=== PATIENT | female | born 1980 | race Caucasian/White ===

== ENCOUNTER 2024-07-27 16:05 | Observation (INO) | payer MEDICARE, MEDICAID, SELFPAY ==
[2024-07-27] VITALS (27 sets, daily range): BP systolic 119–210; BP diastolic 84–131; PULSE 73–102; TEMP 36.8–37.1; O2SAT 84–100; BMI 25.5; BMI 24.1
--- NOTE | 2024-07-27 16:06 | ECG_ITS ---
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 Measurements Intervals [place] Rate: 91 P: 53 VT: 186 QRS: 70 QRSD: 106 T: 64 QT: 360 QTc: 409 Interpretive Statements 1100 Sinus rhythm 47308 with occasional ventricular premature complexes (Unreliable analysis due to noise) 0102 ARTIFACT PRESENT 9140 abnormal rhythm ECG Compared to ECG 12/02/2019 14:03:23 Ventricular premature complex(es) now present Electronically Signed On 07-27-2024 17:59:14 EDT by ROXY MARCUS M.D.
--- NOTE | 2024-07-27 16:10 | ED.GENADUL1 ---
HPI HPI - General Adult General Chief complaint: Chest Pain Stated complaint: CARDIAC Time Seen by Provider: 07/27/24 16:06 History of Present Illness HPI narrative: 43-year-old female presents to the emergency department for an unresponsive episode. The patient was transported here by paramedics. Initially the history is obtained from them and they reported that they were called to her car because she was having pain in her chest. The patient told me that she was on her way to another hospital because she was having this pain that started at noon when she woke from sleep. According to the paramedics she was unresponsive and at one point was bradycardic. They reported that she was in and out of consciousness and when they placed the left shoulder IO she did not respond to that painful stimulus at all. She denies using any drugs in her blood sugar was normal. The patient reports that she was at [facility] until 2 days ago and was there for few days because of cervical issues. She states she had an MRI and is going to see a neurosurgeon. The patient's main complaint now is pain at her left shoulder where the IO is. She also complained of some shortness of breath earlier. Related Data Home Medications ?Medication ?Instructions ?Recorded ?Confirmed baclofen 5 mg tablet 5 mg PO BID 07/27/24 07/27/24 cyanocobalamin (vitamin B-12) 1,000 mcg PO DAILY 07/27/24 07/27/24 1,000 mcg sublingual tablet cyclobenzaprine 10 mg tablet 10 mg PO TID 07/27/24 07/27/24 duloxetine 30 mg capsule,delayed 30 mg PO DAILY 07/27/24 07/27/24 release ergocalciferol (vitamin D2) 1,250 1,250 mcg PO .QWEEKLY 07/27/24 07/27/24 mcg (50,000 unit) capsule gabapentin 800 mg tablet 800 mg PO TID 07/27/24 07/27/24 glucagon 1 mg/0.2 mL subcutaneous 1 mg subcut DAILY PRN low blood 07/27/24 07/27/24 auto-injector (Gvoke HypoPen sugar 2-Pack) hydroxyzine HCl 25 mg tablet 25 mg PO DAILY 07/27/24 07/27/24 mirtazapine 15 mg tablet 15 mg PO .QHS 07/27/24 07/27/24 ondansetron 4 mg disintegrating 4 mg PO Q8H PRN nausea and vomiting 07/27/24 07/27/24 tablet oxcarbazepine 150 mg tablet 150 mg PO BID 07/27/24 07/27/24 pantoprazole 40 mg tablet,delayed 40 mg PO BID 07/27/24 07/27/24 release sumatriptan succinate 100 mg tablet 100 mg PO Q2H PRN migraine headache 07/27/24 07/27/24 topiramate 50 mg tablet 50 mg PO BID 07/27/24 07/27/24 Allergies Allergy/AdvReac Type Severity Reaction Status Date / Time sulfamethoxazole (From Allergy Mild Hives Verified 07/27/24 16:08 Bactrim) trimethoprim (From Bactrim) Allergy Mild Hives Verified 07/27/24 16:08 Opioid HPI Opioid Management Most Recent Opioid Data: Ur Phencyclidine Scrn, (NEGATIVE) Negative Today, 17:06 Review of Systems ROS Narrative A ten point review of systems is negative except as noted above. Exam Narrative Exam Narrative: Nurses note and vital signs reviewed and patient is not hypoxic. General: The patient is awake when she is brought into the emergency department. She is screaming out in pain and holding her left shoulder and left upper chest area. Skin: Warm, dry, no pallor noted. There is no rash noted. Head: Normocephalic, atraumatic Eye: Normal conjunctiva, no drainage Ears, Nose, Mouth, and Throat: oral mucosa is moist. Nares patent. Cardiovascular: Regular Rate and Rhythm Respiratory: Patient is in no distress, no accessory muscle use, lungs are clear to auscultation, no wheezing, rales or rhonchi. Breath sounds are equal Back: non-tender GI: Soft and nontender Musculoskeletal: The patient has no evidence of calf tenderness, no pitting edema, symmetrical pulses noted bilaterally. Left shoulder has IO. Neurological: Awake alert and fully oriented Psychiatric: Mildly uncooperative, tearful Constitutional Vital Signs, click to edit/add: Last Vital Signs Temp 98.3 F 07/27/24 16:05 Pulse 96 H 07/27/24 18:10 Resp 20 07/27/24 18:10 BP 146/99 H 07/27/24 18:10 Pulse Ox 97 07/27/24 18:10 O2 Del Method Room Air 07/27/24 18:10 Course Vital Signs Vital signs: Vital Signs Temperature 98.3 F 07/27/24 16:05 Pulse Rate 98 H 07/27/24 16:05 Respiratory Rate 22 H 07/27/24 16:05 Blood Pressure 148/102 H 07/27/24 16:05 Pulse Oximetry 100 07/27/24 16:05 Oxygen Delivery Method Room Air 07/27/24 16:05 Temperature 98.3 F 07/27/24 16:05 Pulse Rate 96 H 07/27/24 18:10 Respiratory Rate 20 07/27/24 18:10 Blood Pressure 146/99 H 07/27/24 18:10 Pulse Oximetry 97 07/27/24 18:10 Oxygen Delivery Method Room Air 07/27/24 18:10 Medical Decision Making MDM Narrative Medical decision making narrative: The patient is awake and alert still frequently screaming out in pain. Her cardiac workup thus far has been negative with repeat troponin pending. CAT scan of her brain is ordered as well because of this unusual behavior and altered mental status. The patient is signed out to Dr. Navarro at change of shift. Differential Diagnosis Differential Diagnosis: Pneumothorax, OR, pneumonia, chest wall pain, substance abuse Lab Data Lab results reviewed: Yes I reviewed the patient's lab results Labs: Lab Results 07/27/24 07/27/24 Range/Units 16:20 17:06 WBC 9.2 (4.0-11.0) 10^3/uL RBC 4.51 (4.20-5.40) 10^6/uL Hgb 14.2 (12.0-16.0) g/dL Hct 42.9 (36.0-48.0) % MCV 95.1 (81.0-99.0) fL MCH 31.5 (26.7-34.0) pg MCHC 33.1 (29.9-35.2) g/dL RDW 13.1 (11.0-15.0) % Plt Count 320 (150-450) 10^3/uL MPV 9.6 (9.5-13.5) fL Neut % (Auto) 72.9 (43.0-75.0) % Lymph % (Auto) 20.2 L (20.5-60.0) % [place] % (Auto) 5.0 (1.7-12.0) % Eos % (Auto) 0.7 L (0.9-7.0) % Baso % (Auto) 0.8 (0.2-2.0) % Neut # (Auto) 6.7 H (1.4-6.5) 10^3/uL Lymph # (Auto) 1.9 (1.2-3.8) 10^3/uL [place] # (Auto) 0.5 (0.3-0.8) 10^3/uL Eos # (Auto) 0.1 (0.0-0.7) 10^3/uL Baso # (Auto) 0.1 (0.0-0.1) 10^3/uL Abs Immat Gran (auto) 0.04 H (0.00-0.03) 10^3/uL Imm/Tot Granulo (auto) 0.4 (0.0-0.5) % D-Dimer 0.54 (<=0.59) mg/L FEU Sodium 139 (136-145) mmol/L Potassium 2.9 L* (3.5-5.1) mmol/L Chloride 104 (98-107) mmol/L Carbon Dioxide 26.5 (21.0-32.0) mmol/L Anion Gap 11.4 BUN 16.0 (7.0-18.0) mg/dL Creatinine 0.76 (0.55-1.02) mg/dL Est GFR ( Amer) >60 (>=60 mL/min/1.73m^2) Est GFR (Non-Af Amer) >60 (>=60 mL/min/1.73m^2) BUN/Creatinine Ratio 21.1 Glucose 93 (74-106) mg/dL Calcium 9.1 (8.5-10.1) mg/dL Troponin I High Sens 10.4 (4.0-51.3) pg/mL Urine Color Yellow (YELLOW) Urine Clarity Clear (CLEAR) Urine pH 6.0 (5.0-9.0) Ur Specific [place] >=1.030 A (1.005-1.025) Urine Protein 30 A (NEG/TRACE) mg/dL Urine Glucose (UA) Negative (NEGATIVE) mg/dL Urine Ketones 15 A (NEGATIVE) mg/dL Urine Occult Blood Moderate A (NEGATIVE) Urine Nitrite Negative (NEGATIVE) Urine Bilirubin Small A (NEGATIVE) Urine Urobilinogen 1.0 (0.2-1.0) EU/dL Ur Leukocyte Esterase Moderate A (NEGATIVE) Urine RBC 2-5 A (0-2) #/HPF Urine WBC 5-10 A (NONE SEEN) #/HPF Ur Squamous Epith Cells Few A (NONE/RARE) #/LPF Urine Crystals Seen A (None Seen) #/HPF Calcium Oxalate Crystal Few Urine Bacteria Moderate A (NONE SEEN) #/HPF Urine Casts None seen (NONE SEEN) #/LPF Urine Mucus Trace A (NONE SEEN) Urine Yeast Seen A (NONE SEEN) Ur [place] [place] Opiates Screen Negative (NEGATIVE) Ur Buprenorphine Scrn Negative (NEGATIVE) Ur Oxycodone Screen Negative (NEGATIVE) Urine Methadone Screen Negative (NEGATIVE) Ur Barbiturates Screen Negative (NEGATIVE) U Tricyclic Antidepress Positive A (NEGATIVE) Ur Phencyclidine Scrn Negative (NEGATIVE) Ur Amphetamines Screen Negative (NEGATIVE) U Methamphetamines Scrn Negative (NEGATIVE) U Benzodiazepines Scrn Negative (NEGATIVE) Urine Cocaine Screen Negative (NEGATIVE) U Cannabinoids Screen Positive A (NEGATIVE) Ethanol Quant <3 mg/dL Imaging Data Chest x-ray: Radiologist's impression: No acute cardiopulmonary process ECG Data Attestation: I personally reviewed and interpreted this ECG as follows: (EKG on my interpretation shows sinus rhythm with rate of 91, a PVC, and some artifact) Discharge Plan Discharge Patient Disposition: Still a Patient
--- NOTE | 2024-07-27 16:35 | PC.NURSE ---
I/O present on arrival to left shoulder placed by EMS This nurse established a 20g IV in the interior bicep of right right arm via Ultrasound guidance Pt tolerated IV placement well Pt was crying uncontrollably due to I/O I/O then manually removed by this nurse Pt still crying at this time in pain
--- NOTE | 2024-07-27 16:37 | PC.NURSE ---
Pt presents to ER via EMS after pulling over her car and calling 911 due to chest pain Per EMS report when they arrived on scene and moved pt from her vehicle she went unconscious and became bradycardic Per EMS they were not able to establish an IV after numerous attempts so an IO was placed in the left humerus At the time EMS called report to ER pt was unconscious On arrival patient is screaming in pain and crying uncontrollably Pt repeatedly redirected to calm down and answer questions for staff Pt states she was driving to [facility] [employer] because of her chest pain when she called EMS Pt states she has a history of cervical issues and has been seeing a neurosurgeon Pt denies drug use at this time or ever throughout her life Pt states she had gastric bypass several years ago Pt very concerned about IO in her shoulder stating it hurts so bad and repeatedly asking for help and it taken out This nurse placed an IV and removed IO Pt still overly reactive to pain at this time This nurse asked Dr. Carranza for pain medication for patient
[2024-07-27] MEDS: KETOROLAC TROMETHAMINE 30 MG/ML VIAL IVP (16:44)
[2024-07-27 16:51] LABS: Basophils Absolute Auto 0.1 10^3/uL (0.0-0.1); Basophils Percent Auto 0.8 % (0.2-2.0); Eosinophils Absolute Auto 0.1 10^3/uL (0.0-0.7); Eosinophils Percent Auto 0.7 % (0.9-7.0); Hematocrit 42.9 % (36.0-48.0); Hemoglobin 14.2 g/dL (12.0-16.0); Immature Granulocytes Abs Auto 0.04 10^3/uL (0.00-0.03); Immature Granulocytes Pct Auto 0.4 % (0.0-0.5); Lymphocytes Absolute Auto 1.9 10^3/uL (1.2-3.8); Lymphocytes Percent Auto 20.2 % (20.5-60.0); Mean Corpuscular HGB Conc 33.1 g/dL (29.9-35.2); Mean Corpuscular Hemoglobin 31.5 pg (26.7-34.0); Mean Corpuscular Volume 95.1 fL (81.0-99.0); Mean Platelet Volume 9.6 fL (9.5-13.5); Monocytes Absolute Auto 0.5 10^3/uL (0.3-0.8); Neutrophils Absolute Auto 6.7 10^3/uL (1.4-6.5); Neutrophils Percent Auto 72.9 % (43.0-75.0); Platelet Count 320 10^3/uL (150-450); Red Blood Count 4.51 10^6/uL (4.20-5.40); Red Cell Distribution Width 13.1 % (11.0-15.0); White Blood Count 9.2 10^3/uL (4.0-11.0)
[2024-07-27 17:13] LABS: Anion Gap 11.4; BUN Creatinine Ratio 21.1; Calcium 9.1 mg/dL (8.5-10.1); Carbon Dioxide 26.5 mmol/L (21.0-32.0); Chloride 104 mmol/L (98-107); Estimated GFR (African America >60 (>=60 mL/min/1.73m^2); Estimated GFR (Non-African Ame >60 (>=60 mL/min/1.73m^2); Glucose 93 mg/dL (74-106); Sodium 139 mmol/L (136-145); Troponin I High Sensitivity 10.4 pg/mL (4.0-51.3)
[2024-07-27] MEDS: LORAZEPAM 2 MG/ML VIAL 0.5 MG IV ×2 (17:13→18:21)
[2024-07-27 17:18] LABS: Potassium 2.9 mmol/L (3.5-5.1)
[2024-07-27 17:20] LABS: Ethanol <3 mg/dL
[2024-07-27 17:30] LABS: D Dimer 0.54 mg/L FEU (<=0.59)
[2024-07-27 17:55] LABS: Bilirubin Urine SMALL (NEGATIVE); Blood Urine MODERATE (NEGATIVE); Clarity Urine CLEAR (CLEAR); Color Urine YELLOW (YELLOW); Glucose Urine UA NEGATIVE (NEGATIVE); Ketones Urine 15 mg/dL (NEGATIVE); Leukocyte Esterase Urine MODERATE (NEGATIVE); Nitrite Urine NEGATIVE (NEGATIVE); Protein Urine 30 mg/dL (NEG/TRACE); Specific Gravity Urine >=1.030 (1.005-1.025)
[2024-07-27 18:03] LABS: Amphetamine Screen Urine NEGATIVE (NEGATIVE); Barbiturates Screen Urine NEGATIVE (NEGATIVE); Benzodiazepines Screen Urine NEGATIVE (NEGATIVE); Buprenorphine Screen Urine NEGATIVE (NEGATIVE); Cannabinoid Screen Urine POSITIVE (NEGATIVE); Cocaine Screen Urine NEGATIVE (NEGATIVE); Methadone Screen Urine NEGATIVE (NEGATIVE); Methamphetamines Screen Urine NEGATIVE (NEGATIVE); Opiate Screen Urine NEGATIVE (NEGATIVE); Oxycodone Screen Urine NEGATIVE (NEGATIVE); Phencyclidine Screen Urine NEGATIVE (NEGATIVE); Tricyclic Antidepressant Urine POSITIVE (NEGATIVE)
[2024-07-27] MEDS: ONDANSETRON PF 4 MG/2 ML VIAL IV (18:20)
[2024-07-27 18:23] LABS: Bacteria Urine MODERATE #/HPF (NONE SEEN); Mucus Urine TRACE (NONE SEEN); Squamous Epithelial Cell Urine FEW #/LPF (NONE/RARE)
[2024-07-27 18:24] LABS: Calcium Oxalate Crystals Urine FEW; Cast Seen? NONE SEEN #/LPF (NONE SEEN); Crystals Seen? Seen #/HPF (None Seen)
[2024-07-27 18:25] LABS: Urine Culture Indicated YES-FRMC
[2024-07-27 19:01] LABS: Troponin I High Sensitivity 11.1 pg/mL (4.0-51.3)
[2024-07-27 20:38] LABS: Magnesium 1.9 mg/dL (1.8-2.4)
[2024-07-27] MEDS: CEFTRIAXONE 1,000 MG in 0.9 % SODIUM CHLORIDE 50 ML 100 MG IV (21:05)
[2024-07-27 21:38] LABS: C Reactive Protein <0.50 mg/dL (<=0.50)
[2024-07-27] MEDS: POTASSIUM CHLORIDE IN WATER 10 MEQ/100 ML PREMIX 100 MEQ IV ×4 (21:38→23:47)
[2024-07-27] MEDS: 0.9 % SODIUM CHLORIDE 1,000 ML 100 ML IV (21:43)
[2024-07-27] MEDS: MIRTAZAPINE 15 MG TABLET PO (21:48)
[2024-07-27 22:52] LABS: Glucometer 127 mg/dL (74-106)
[2024-07-27] MEDS: ACETAMINOPHEN 325 MG TABLET 650 MG PO (23:38)
[2024-07-27] MEDS: HYDRALAZINE HCL 20 MG/ML VIAL 10 MG IVP (23:43)
[2024-07-28] VITALS (11 sets, daily range): BP systolic 141–174; BP diastolic 88–113; PULSE 80–93; TEMP 36.8–37.1; O2SAT 95–97
[2024-07-28] MEDS: ONDANSETRON PF 4 MG/2 ML VIAL IV (00:30)
[2024-07-28] MEDS: MAGNESIUM SULFATE IN WATER 2 GM/50 ML PREMIX IV (02:08)
[2024-07-28 05:40] LABS: Basophils Absolute Auto 0.1 10^3/uL (0.0-0.1); Basophils Percent Auto 0.5 % (0.2-2.0); Eosinophils Percent Auto 0.1 % (0.9-7.0); Hematocrit 39.9 % (36.0-48.0); Hemoglobin 13.1 g/dL (12.0-16.0); Immature Granulocytes Abs Auto 0.05 10^3/uL (0.00-0.03); Immature Granulocytes Pct Auto 0.5 % (0.0-0.5); Lymphocytes Absolute Auto 1.4 10^3/uL (1.2-3.8); Lymphocytes Percent Auto 13.1 % (20.5-60.0); Mean Corpuscular HGB Conc 32.8 g/dL (29.9-35.2); Mean Corpuscular Hemoglobin 31.1 pg (26.7-34.0); Mean Corpuscular Volume 94.8 fL (81.0-99.0); Mean Platelet Volume 9.5 fL (9.5-13.5); Monocytes Absolute Auto 0.4 10^3/uL (0.3-0.8); Monocytes Percent Auto 4.3 % (1.7-12.0); Neutrophils Absolute Auto 8.4 10^3/uL (1.4-6.5); Neutrophils Percent Auto 81.5 % (43.0-75.0); Platelet Count 273 10^3/uL (150-450); Red Blood Count 4.21 10^6/uL (4.20-5.40); Red Cell Distribution Width 13.1 % (11.0-15.0); White Blood Count 10.3 10^3/uL (4.0-11.0)
[2024-07-28] MEDS: ACETAMINOPHEN 325 MG TABLET 650 MG PO (05:52)
[2024-07-28] MEDS: GABAPENTIN 400 MG CAPSULE 800 MG PO (05:52)
[2024-07-28 06:00] LABS: Alanine Aminotransferase 13 U/L (14-59); Albumin Level 3.3 g/dL (3.4-5.0); Alkaline Phosphatase 107 U/L (46-116); Anion Gap 11.9; Aspartate Amino Transferase 13 U/L (15-37); BUN Creatinine Ratio 25.5; Bilirubin Total 0.5 mg/dL (0.2-1.0); Calcium 8.5 mg/dL (8.5-10.1); Chloride 106 mmol/L (98-107); Estimated GFR (African America >60 (>=60 mL/min/1.73m^2); Estimated GFR (Non-African Ame >60 (>=60 mL/min/1.73m^2); Globulin 3.2 g/dL; Glucose 109 mg/dL (74-106); Magnesium 2.4 mg/dL (1.8-2.4); Potassium 3.9 mmol/L (3.5-5.1); Sodium 140 mmol/L (136-145); Total Protein 6.5 g/dL (6.4-8.2)
[2024-07-28 08:04] LABS: Glucometer 95 mg/dL (74-106)
--- NOTE | 2024-07-28 08:37 | CA_ITS ---
Patient Name: CHRISTINA CHACON MR#: [id number] : 1980 Exam Date: 07/28/2024 Ordering Doctor: ASHOK TURCIOS . ECHOCARDIOGRAM REPORT PROCEDURE: CA ECHO DOPPLER COMPLETE INDICATIONS: syncope with collapse COMPARISON: None. DESCRIPTION: COMPLETE ECHOCARDIOGRAM Real-time transthoracic echocardiography with 2D, M-mode, spectral and color flow Doppler performed. QUALITY: Technical quality was good. LEFT VENTRICLE: Normal chamber size. Borderline left ventricular hypertrophy. Normal systolic function. LV EF: Estimated left ventricular ejection fraction is 60-65%. Normal left ventricular ejection fraction, (>55%). DIASTOLIC: Normal diastolic function. ATRIAL SEPTUM: LEFT ATRIUM: Mild dilatation. RIGHT ATRIUM: Normal chamber size. RIGHT VENTRICLE: Normal chamber size. Normal right ventricular systolic function. TRICUSPID VALVE: Normal mobility and thickness. No stenosis with no regurgitation. Unable to assess right sided pressures due to lack of measurable tricuspid regurgitation. MITRAL VALVE: Normal mobility and thickness. No evidence of mitral valve stenosis. There is no mitral annular calcification. No mitral regurgitation. AORTIC VALVE: Normal trileaflet appearance. No visible sclerosis. Normal leaflet mobility. No evidence of aortic valve stenosis. No aortic regurgitation. AORTIC ROOT: Normal diameter and appearance [3.0 cm]. Ascending aorta is normal in size [2.5 cm]. PULMONIC VALVE: Normal thickness and mobility. No stenosis. No regurgitation. PERICARDIUM: No evidence of pericardial effusion. IVC: IVC is normal in size, does not fully collapse. PLEURA: CONCLUSION: 1. Normal ventricular size and systolic function. LVEF is estimated at 60-65%. 2. No significant valvular dysfunction. 3. No pericardial effusion. Adult Echocardiography Procedure Report Left Ventricle LVEDD (3.7 - 5.6 cm): 3.74 cm LVESD (2.2 - 4.0 cm): 2.68 cm LVIVS thickness (0.6 - 1.2 cm): 1.08 cm LVPW thickness (0.5 - 1.0 cm): 1.00 cm e': 0.18 m/s E - e': 6.09 LVOT Max Gradient: 5.40 mm[Hg] LVOT Area (cm2): 1.16 m/s Peak Velocity (LVOT): 1.16 m/s Mean Velocity (LVOT): 0.74 m/s LVOT Diameter 2.03 cm Left Atrium LA Volume Index (2D A2C): 40.22 ml/m2 Left Atrium Systolic Dimension: 2.88 cm Mitral Valve MV E to A Ratio: 1.61 Mitral Valve A-Wave Peak Velocity: 0.68 m/s Mitral Valve E-Wave Peak Velocity: 1.10 m/s Right Ventricle Aorta AO Root Diam: 3.01 cm Ascending Ao Diam: 2.49 cm Aortic Valve AoV Area (Peak Black): 3.04 cm2, 3.04 cm2 AoV Area (VTI): 2.86 cm2, 2.86 cm2 Peak Velocity(Antegrade Flow): 1.23 m/s Peak Gradient(Antegrade Flow): 6.09 mm[Hg] Mean Velocity(Antegrade Flow): 0.81 m/s Mean Gradient(Antegrade Flow): 3.05 mm[Hg] Velocity Time Integral: 25.38 cm Tricuspid Valve Pulmonic Valve Mean Gradient: 2.48 mm[Hg] Mean Velocity: 0.76 m/s Peak Velocity: 0.99 m/s, 1.08 m/s Peak Gradient: 4.68 mm[Hg], 3.94 mm[Hg] Right Atrium Right Atrium Systolic Pressure: 25.51 ml, 25.51 ml Dictated by: Chip Fang M.D. on 07/28/2024 at 14:20 Approved by: Chip Fang M.D. on 07/28/2024 at 14:24
--- NOTE | 2024-07-28 08:39 | PM.HP ---
HPI H&P: HPI History of Present Illness Chief complaint: SYNCOPE UTI HYPERKALEMIA Narrative: Patient is a 43 y.o with history of recent Cervical Radiculopathy, Chronic migraine headaches, Hypoglycemia, GERD, Anxiety, Vitamin D def and Vitamin B12 def (from previous gastric bypass), who presented to the ER after being found unresponsive in her car by EMS, They apparently placed and IO site in her arm. When she came to, she said she started having chest pain and was driving herself to the ER. She was recently seen at [facility] for neck pain. She had MRI and CT which showed a cervical degenerative spine worst at C5/C6 with a disc Bulge at C5/C6, she was treated with Medrol dosepack, [place], Flexeril and was suppose to make follow up with Neurosurgeon at [facility]. She states she was picking up papertowels on the floor of a bathroom at work when she felt her neck spasm. She felt the treatment she received from ER helped alittle and had one dose of Medrol to complete yesterday. She awoke yesterday and felt very off . She said her thinking felt fuzzy and her finger tips started to get numb. She has had previous issues with her potassium since her gastric bypass surgery in 2010. She has not been eating and drinking well due to her neck pain. She attempted to drive herself to [place] but stopped her car and that's when EMS found her. She denies any previous cardiac history. She has never had an episode where she lost consciousness before. EMS inserted an IO into her arm and that was taken out in the ER. She has alot of anxiety per patient. She has no leg symptoms. She complains of bilateral neck pain radiating to just below her head and down her right arm. She has a heating pad. No current chest pain, no Shortness of breath. ER findings: K 2.9, WBCs 10.3, UA positive and yeast positive, EKG had PVC's, Hb 13.1, Tox screen positive for THC and TCA's, Trop 10, 11, mag 2.4, d-Dimer normal; CXR showed no acute process; Head CT- No acute process Patient's potassium was replaced IV and she Was admitted for further work up. Opioid HPI Opioid Management Most Recent Pain and Opioid Data: Last Pain Scale 8 Today, 11:36 Last Pain Assessment 05/13/25, 22:00 Last ORT Total Score 1 07/27/24, 21:32 Last ORT Risk Category Low Risk 07/27/24, 21:32 Ur Phencyclidine Scrn, (NEGATIVE) Negative 07/27/24, 17:06 Review of Systems ROS Narrative ROS: a complete review of systems were reviewed with patient and are positive as below or listed in History of Chief Complaint. General: no fever, chills, night sweats Head: no headache, trauma, visual changes, nausea or vomiting Skin: no reported rashes, itching or sores Eyes: no blurriness of vision Ears: no reported hearing loss, vertigo, earache, or tinnitus Throat: no sore throat, hoarseness, swelling of neck, or tongue pain Heart: chest pain Lungs: no shortness of breath or cough GI: no diarrhea or vomiting/nausea Urinary: no urinary urgency, frequency or pain Neuro: no numbness or tingling HEM: no bleeding issues or bruising ENDO: no thyroid problems Psych: anxiety and depression PFSH PFSH Medical History Cervical pain (neck) ?M54.2 - Cervicalgia (ICD-10) Vitamin B12 deficiency anemia ?D51.9 - Vitamin B12 deficiency anemia, unspecified (ICD-10) Anxiety with depression ?F41.8 - Other specified anxiety disorders (ICD-10) GERD without esophagitis ?K21.9 - Gastro-esophageal reflux disease without esophagitis (ICD-10) Chronic migraine w/o aura w/o status migrainosus, not intractable ?G43.709 - Chronic migraine without aura, not intractable, without status migrainosus (ICD-10) Surgical History Gastric bypass status for obesity ?Z98.84 - Bariatric surgery status (ICD-10) Meds Home Medications and Allergies Home Medications ?Medication ?Instructions ?Recorded ?Confirmed ?Type baclofen 5 mg tablet 5 mg PO BID PRN muscle spasm 07/27/24 07/28/24 History cyanocobalamin (vitamin B-12) 1,000 mcg PO DAILY 07/27/24 07/27/24 History 1,000 mcg sublingual tablet duloxetine 30 mg capsule,delayed 30 mg PO DAILY 07/27/24 07/27/24 History release ergocalciferol (vitamin D2) 1,250 1,250 mcg PO .QWEEKLY 07/27/24 07/27/24 History mcg (50,000 unit) capsule gabapentin 800 mg tablet 800 mg PO TID 07/27/24 07/27/24 History glucagon 1 mg/0.2 mL subcutaneous 1 mg subcut DAILY PRN low blood 07/27/24 07/27/24 History auto-injector (Gvoke HypoPen sugar 2-Pack) hydroxyzine HCl 25 mg tablet 25 mg PO DAILY 07/27/24 07/27/24 History mirtazapine 15 mg tablet 15 mg PO .QHS 07/27/24 07/27/24 History oxcarbazepine 150 mg tablet 150 mg PO BID 07/27/24 07/27/24 History pantoprazole 40 mg tablet,delayed 40 mg PO BID 07/27/24 07/27/24 History release sumatriptan succinate 100 mg tablet 100 mg PO Q2H PRN migraine headache 07/27/24 07/27/24 History topiramate 50 mg tablet 50 mg PO BID 07/27/24 07/27/24 History hydroxyzine pamoate 100 mg capsule 100 mg PO Q8H PRN anxiety 07/28/24 07/28/24 History Allergies Allergy/AdvReac Type Severity Reaction Status Date / Time sulfamethoxazole (From Allergy Mild Hives Verified 07/27/24 16:08 Bactrim) trimethoprim (From Bactrim) Allergy Mild Hives Verified 07/27/24 16:08 Exam Narrative Exam Narrative: General: Patient is alert, and oriented to person, place and time with normal affect, proper hygiene Skin: no visible rashes, or ulcers, multiple tattoos and facial piercings Head: atraumatic, acephalic Eyes: PERRLA, no nystagmus present, conjunctiva clear, no scleral icterus Ears: normal gross auditory acuity Neck: no masses palpated, bilateral tenderness over the trapezius muscles and SCM's Heart: Normal rate and rhythm, no murmurs/rubs/gallops Lungs: no audible wheezes, crackles and normal breath sounds all lung lowry Abdomen: Normal audible bowel sounds, no distension, No palpable masses, no organomegaly, no rebound/guarding/ or rigidity Musculoskeletal: no swelling bilateral lower extremities Neuro: CN II-X grossly intact Constitutional Vital Signs, click to edit/add: Last Vital Signs Temp 98.8 F 07/28/24 07:38 Pulse 84 07/28/24 08:00 Resp 18 07/28/24 08:00 BP 141/88 07/28/24 07:38 Pulse Ox 95 07/28/24 07:38 O2 Del Method Room Air 07/28/24 07:38 Results Labs Labs: Short CBC 07/27/24 07/28/24 Range/Units 16:20 05:21 WBC 9.2 10.3 (4.0-11.0) 10^3/uL Hgb 14.2 13.1 (12.0-16.0) g/dL Hct 42.9 39.9 (36.0-48.0) % Plt Count 320 273 (150-450) 10^3/uL BMP 07/27/24 07/28/24 16:20 05:21 Sodium 139 140 Potassium 2.9 L* 3.9 Chloride 104 106 Carbon Dioxide 26.5 26.0 BUN 16.0 14.0 Creatinine 0.76 0.55 Glucose 93 109 H Calcium 9.1 8.5 Liver Function 07/28/24 Range/Units 05:21 Total Bilirubin 0.5 (0.2-1.0) mg/dL AST 13 L (15-37) U/L ALT 13 L (14-59) U/L Alkaline Phosphatase 107 (46-116) U/L Albumin 3.3 L (3.4-5.0) g/dL Urine 07/27/24 Range/Units 17:06 Urine Color Yellow (YELLOW) Urine Clarity Clear (CLEAR) Urine pH 6.0 (5.0-9.0) Ur Specific [place] >=1.030 A (1.005-1.025) Urine Protein 30 A (NEG/TRACE) mg/dL Urine Glucose (UA) Negative (NEGATIVE) mg/dL Assessment and Plan Assessment and Plan (1) Syncope and collapse: Assessment and Plan: Will check ECho and Carotids US, Will need to be discharged on 7 day Event monitor; electrolytes within normal range today including mag and potassium; CT head ok, CXR ok, Troponin trending normal, recheck 1200. Check TSH, Lipids, Ha1c. Avoid sedating medications which were d/c this morning from home med list. EKG with PVC's, on Telemetry (2) Altered mental status: Assessment and Plan: continue cardiac work up, CT head negative, avoid sedative medications, polypharmacy?, Tox screen positive for TCA's and THC Qualifiers: Altered mental status type: somnolence Qualified Code(s): R40.0 - Somnolence (3) Hypokalemia: Assessment and Plan: K was 2.9, up to 3.9 this morning after 40 MEQ IV x 1. Will monitor (4) UTI (urinary tract infection): Assessment and Plan: Culture pending, Treating with Rocephin Qualifiers: Hematuria presence: with hematuria Urinary tract infection type: acute cystitis Qualified Code(s): N30.01 - Acute cystitis with hematuria (5) Yeast cystitis: Assessment and Plan: Treat with Diflucan 150mg PO x 1 (6) Chest pain: Assessment and Plan: Uncertain etiology, hypokalemia?, Trop negative, D-dimer negative, CXR negative, resolved Qualifiers: Chest pain type: unspecified Qualified Code(s): R07.9 - Chest pain, unspecified (7) Chronic migraine w/o aura w/o status migrainosus, not intractable: Assessment and Plan: continue topamax (8) GERD without esophagitis: Assessment and Plan: continue protonix (9) Anxiety with depression: Assessment and Plan: Hold Cymbalta for now, continue Trileptal (10) Vitamin B12 deficiency anemia: Assessment and Plan: hb 13.1, will check B12 level, continue replacement Qualifiers: Vitamin B12 deficiency anemia type: unspecified B12 deficiency Qualified Code(s): D51.9 - Vitamin B12 deficiency anemia, unspecified (11) Cervical pain (neck): Assessment and Plan: Patient has appointment for [facility]. Will treat with dose of Valium here, and Percocet for pain. She just completed Medrol dosepack. Plan Patient is a full code patient is getting Lovenox for dvt prophylaxis Patient is currently observation status
[2024-07-28 09:05] LABS: Chol HDL Ratio 2.3; Cholesterol 149 mg/dL (<=200); HDL Cholesterol 65 mg/dL (40-60); Triglycerides 49 mg/dL (<=150); VLDL CHOLESTEROL 9.8 mg/dL
[2024-07-28 09:07] LABS: Thyroid Stimulating Hormone 0.795 uIU/mL (0.358-3.740)
[2024-07-28 09:19] LABS: Estimated Average Glucose 111 mg/dL; Glycohemoglobin A1C 5.5 % (4.5-6.2)
[2024-07-28] MEDS: OXcarbazepine 150 MG TABLET PO (09:23)
[2024-07-28] MEDS: PANTOPRAZOLE SODIUM 40 MG TABLET.DR PO (09:24)
[2024-07-28] MEDS: HYDROXYZINE HCL 25 MG TABLET PO (09:24)
[2024-07-28] MEDS: FLUCONAZOLE 150 MG TABLET PO (09:24)
[2024-07-28] MEDS: ENOXAPARIN SODIUM 40 MG/0.4 ML SYRINGE SUBQ (09:24)
[2024-07-28] MEDS: TOPIRAMATE 25 MG TABLET 50 MG PO (09:24)
[2024-07-28] MEDS: DIAZEPAM 10 MG/2 ML SYRINGE 5 MG IV (11:05)
[2024-07-28 11:23] LABS: Glucometer 119 mg/dL (74-106)
--- NOTE | 2024-07-28 11:47 | CM.NOTE ---
Rounds made with Dr. Burroughs. Dr. Burroughs reviews plan of care, medication adjustments and additions. Dr. Burroughs reviews [facility] from [facility] admission provided by Sarah. Potential discharge later today if improving. Follow up with [facility] Neurosurgeon, Cardiology ([facility]) and PCP on Friday (keep scheduled appointment). Sarah verbalizes understanding.
--- NOTE | 2024-07-28 11:58 | SWNOTE1 ---
Medicare Outpatient Observation Notice reviewed and discussed with patient. Pt. verbalized understanding and signed the form. Original given to patient and copy placed in patient?s chart.
[2024-07-28] MEDS: OXYCODONE HCL/ACETAMINOPHEN 5MG/325MG 1 TAB PO (12:55)
--- NOTE | 2024-07-28 15:27 | P.DS_ITS ---
DS: Providers Provider Date of admission: 07/27/24 21:21 Primary care physician: [facility] Attending physician on admission: Leila Burroughs Discharging clinician: Leila Burroughs DS: Diagnosis Discharge Diagnosis (1) Syncope and collapse: (2) Altered mental status: Qualifiers: Altered mental status type: somnolence Qualified Code(s): R40.0 - Somnolence (3) Hypokalemia: (4) UTI (urinary tract infection): Qualifiers: Urinary tract infection type: acute cystitis Hematuria presence: with hematuria Qualified Code(s): N30.01 - Acute cystitis with hematuria (5) Yeast cystitis: (6) Chest pain: Qualifiers: Chest pain type: unspecified Qualified Code(s): R07.9 - Chest pain, unspecified (7) Chronic migraine w/o aura w/o status migrainosus, not intractable: (8) GERD without esophagitis: (9) Anxiety with depression: (10) Vitamin B12 deficiency anemia: Qualifiers: Vitamin B12 deficiency anemia type: unspecified B12 deficiency Qualified Code(s): D51.9 - Vitamin B12 deficiency anemia, unspecified (11) Cervical pain (neck): DS: Summary Hospital Course Hospital Course: Patient had no further events noted on Telemetry. Echocardiogram was reviewed with patient and had normal findings. Carotid artery Doppler ultrasounds were negative for stenosis discussed with patient. Her neck pain seems better controlled with Percocet. She has 7 day Holter monitor placed. She has close follow up with PCP on friday for repeat BMP, I have prescribed her KlorCon 20 MEQ daily for 7 days. OARRS reviewed, last [place] prescription was on 07/21/24 for 5 days. I sent Rx for Percocet q8hrs PRN #9. She was treated with diflucan 150mg x 1 for her yeast cystitis and I have placed her on Augmentin 500mg BID x 7 days for UTI, urine culture is pending at the time of discharge. She has appointment scheduled with Neurosurgeon from fridayaugust 02 and with [facility] cardiology 08/12/24 to discuss Holter monitor results. She should use any restrictions given to her from [facility] last week. She may return to the ER with any other worsening signs or symptoms. Most likely syncopal event reason was polypharmacy and hypokalemia. K level was 3.9 at the time of discharge. Status at Discharge Functional status at discharge: independent ambulation Overall status at discharge: patient is progressing back to baseline Time Spent with Patient Time attestation: Total time spent providing and/or coordinating discharge services: Time spent: greater than 30 minutes Exam Narrative Exam Narrative: no change in exam at the time of discharge from admission H&P Constitutional Vital Signs, click to edit/add: Last Vital Signs Temp 98.7 F 07/28/24 11:34 Pulse 93 H 07/28/24 14:00 Resp 18 07/28/24 11:34 BP 174/113 H 07/28/24 11:34 Pulse Ox 97 07/28/24 11:35 O2 Del Method Room Air 07/28/24 11:35 DS: Data Data Completed and Pending Labs on day of discharge: Labs from last 24 hours 07/28/24 07/28/24 07/28/24 12:05 11:17 08:03 WBC RBC Hgb Hct MCV MCH MCHC RDW Plt Count MPV Neut % (Auto) Lymph % (Auto) [place] % (Auto) Eos % (Auto) Baso % (Auto) Neut # (Auto) Lymph # (Auto) [place] # (Auto) Eos # (Auto) Baso # (Auto) Abs Immat Gran (auto) Imm/Tot Granulo (auto) D-Dimer Sodium Potassium Chloride Carbon Dioxide Anion Gap BUN Creatinine Est GFR ( Amer) Est GFR (Non-Af Amer) BUN/Creatinine Ratio Glucose Estimat Average Glucose Hemoglobin A1c Calcium Magnesium Total Bilirubin AST ALT Alkaline Phosphatase Troponin I High Sens 9.0 C-Reactive Protein Total Protein Albumin Globulin Albumin/Globulin Ratio Triglycerides Cholesterol LDL Cholesterol, Calc VLDL Cholesterol HDL Cholesterol Cholesterol/HDL Ratio TSH Urine Color Urine Clarity Urine pH Ur Specific [place] Urine Protein Urine Glucose (UA) Urine Ketones Urine Occult Blood Urine Nitrite Urine Bilirubin Urine Urobilinogen Ur Leukocyte Esterase Urine RBC Urine WBC Ur Squamous Epith Cells Urine Crystals Calcium Oxalate Crystal Urine Bacteria Urine Casts Urine Mucus Urine Yeast Ur Culture Indicated? Urine Opiates Screen Ur Buprenorphine Scrn Ur Oxycodone Screen Urine Methadone Screen Ur Barbiturates Screen U Tricyclic Antidepress Ur Phencyclidine Scrn Ur Amphetamines Screen U Methamphetamines Scrn U Benzodiazepines Scrn Urine Cocaine Screen U Cannabinoids Screen Ethanol Quant POC Glucose 119 H 95 0507/27/24 07/27/24 05:21 22:50 18:36 WBC 10.3 RBC 4.21 Hgb 13.1 Hct 39.9 MCV 94.8 MCH 31.1 MCHC 32.8 RDW 13.1 Plt Count 273 MPV 9.5 Neut % (Auto) 81.5 H Lymph % (Auto) 13.1 L [place] % (Auto) 4.3 Eos % (Auto) 0.1 L Baso % (Auto) 0.5 Neut # (Auto) 8.4 H Lymph # (Auto) 1.4 [place] # (Auto) 0.4 Eos # (Auto) 0.0 Baso # (Auto) 0.1 Abs Immat Gran (auto) 0.05 H Imm/Tot Granulo (auto) 0.5 D-Dimer Sodium 140 Potassium 3.9 Chloride 106 Carbon Dioxide 26.0 Anion Gap 11.9 BUN 14.0 Creatinine 0.55 Est GFR ( Amer) >60 Est GFR (Non-Af Amer) >60 BUN/Creatinine Ratio 25.5 Glucose 109 H Estimat Average Glucose 111 Hemoglobin A1c 5.5 Calcium 8.5 Magnesium 2.4 Total Bilirubin 0.5 AST 13 L ALT 13 L Alkaline Phosphatase 107 Troponin I High Sens 11.1 C-Reactive Protein Total Protein 6.5 Albumin 3.3 L Globulin 3.2 Albumin/Globulin Ratio 1.0 Triglycerides 49 Cholesterol 149 LDL Cholesterol, Calc 75.0 VLDL Cholesterol 9.8 HDL Cholesterol 65 H Cholesterol/HDL Ratio 2.3 TSH 0.795 Urine Color Urine Clarity Urine pH Ur Specific [place] Urine Protein Urine Glucose (UA) Urine Ketones Urine Occult Blood Urine Nitrite Urine Bilirubin Urine Urobilinogen Ur Leukocyte Esterase Urine RBC Urine WBC Ur Squamous Epith Cells Urine Crystals Calcium Oxalate Crystal Urine Bacteria Urine Casts Urine Mucus Urine Yeast Ur Culture Indicated? Urine Opiates Screen Ur Buprenorphine Scrn Ur Oxycodone Screen Urine Methadone Screen Ur Barbiturates Screen U Tricyclic Antidepress Ur Phencyclidine Scrn Ur Amphetamines Screen U Methamphetamines Scrn U Benzodiazepines Scrn Urine Cocaine Screen U Cannabinoids Screen Ethanol Quant POC Glucose 127 H 07/27/24 07/27/24 17:06 16:20 WBC 9.2 RBC 4.51 Hgb 14.2 Hct 42.9 MCV 95.1 MCH 31.5 MCHC 33.1 RDW 13.1 Plt Count 320 MPV 9.6 Neut % (Auto) 72.9 Lymph % (Auto) 20.2 L [place] % (Auto) 5.0 Eos % (Auto) 0.7 L Baso % (Auto) 0.8 Neut # (Auto) 6.7 H Lymph # (Auto) 1.9 [place] # (Auto) 0.5 Eos # (Auto) 0.1 Baso # (Auto) 0.1 Abs Immat Gran (auto) 0.04 H Imm/Tot Granulo (auto) 0.4 D-Dimer 0.54 Sodium 139 Potassium 2.9 L* Chloride 104 Carbon Dioxide 26.5 Anion Gap 11.4 BUN 16.0 Creatinine 0.76 Est GFR ( Amer) >60 Est GFR (Non-Af Amer) >60 BUN/Creatinine Ratio 21.1 Glucose 93 Estimat Average Glucose Hemoglobin A1c Calcium 9.1 Magnesium 1.9 Total Bilirubin AST ALT Alkaline Phosphatase Troponin I High Sens 10.4 C-Reactive Protein <0.50 Total Protein Albumin Globulin Albumin/Globulin Ratio Triglycerides Cholesterol LDL Cholesterol, Calc VLDL Cholesterol HDL Cholesterol Cholesterol/HDL Ratio TSH Urine Color Yellow Urine Clarity Clear Urine pH 6.0 Ur Specific [place] >=1.030 A Urine Protein 30 A Urine Glucose (UA) Negative Urine Ketones 15 A Urine Occult Blood Moderate A Urine Nitrite Negative Urine Bilirubin Small A Urine Urobilinogen 1.0 Ur Leukocyte Esterase Moderate A Urine RBC 2-5 A Urine WBC 5-10 A Ur Squamous Epith Cells Few A Urine Crystals Seen A Calcium Oxalate Crystal Few Urine Bacteria Moderate A Urine Casts None seen Urine Mucus Trace A Urine Yeast Seen A Ur Culture Indicated? [facility] [place] Urine Opiates Screen Negative Ur Buprenorphine Scrn Negative Ur Oxycodone Screen Negative Urine Methadone Screen Negative Ur Barbiturates Screen Negative U Tricyclic Antidepress Positive A Ur Phencyclidine Scrn Negative Ur Amphetamines Screen Negative U Methamphetamines Scrn Negative U Benzodiazepines Scrn Negative Urine Cocaine Screen Negative U Cannabinoids Screen Positive A Ethanol Quant <3 POC Glucose Discharge Plan Discharge Disposition: Home, Self-Care Discharge Medications: New amoxicillin-pot clavulanate [Augmentin] 500-125 mg tablet 1 tab PO Q12H 7 Days Qty: 14 0RF potassium chloride [Klor-Con M20] 20 mEq tablet,ER particles/crystals 20 meq PO DAILY 7 Days Qty: 7 0RF oxycodone-acetaminophen [Percocet] 5-325 mg tablet 1 tab PO Q8H PRN (Reason: pain, severe) 3 Days Qty: 9 0RF Rx Instructions: ICD: M50.22 Continued duloxetine 30 mg capsule,delayed release(DR/EC) 30 mg PO DAILY ergocalciferol (vitamin D2) 1,250 mcg (50,000 unit) capsule 1,250 mcg PO .QWEEKLY Rx Instructions: EVERY TH baclofen 5 mg tablet 5 mg PO BID PRN (Reason: muscle spasm) cyanocobalamin (vitamin B-12) 1,000 mcg tablet, sublingual 1,000 mcg PO DAILY gabapentin 800 mg tablet 800 mg PO TID [place] HypoPen 2-Pack 1 mg/0.2 mL auto-injector 1 mg SUBCUT DAILY PRN (Reason: low blood sugar) hydroxyzine HCl 25 mg tablet 25 mg PO DAILY mirtazapine 15 mg tablet 15 mg PO .QHS oxcarbazepine 150 mg tablet 150 mg PO BID pantoprazole 40 mg tablet,delayed release (DR/EC) 40 mg PO BID sumatriptan succinate 100 mg tablet 100 mg PO Q2H PRN (Reason: migraine headache) topiramate 50 mg tablet 50 mg PO BID hydroxyzine pamoate 100 mg capsule 100 mg PO Q8H PRN (Reason: anxiety) Activity: resume usual activities as tolerated Activity Detail: Please use activity restriction given to you by [facility] as part of your discharge paperwork from ER from last week. Diet: advance to your usual diet Print Language: Kazakh Patient Instructions: Oxycodone/Acetaminophen (By mouth) (Percocet), Potassium Chloride (By mouth), Amoxicillin/Clavulanate Potassium (By mouth), Chest Pain (DC) Forms: Portal Instructions Follow Up Appointments: Keep previously scheduled appt[facility] with [facility] 07/30/24-Will need [facility] to check potassium level Fri. August 02 @ 8am with [facility] - Dr. Luis [id number], [place] [phone] . August 12 @ 10:30am with [facility] [phone] (Discuss Holter monitor results)
[2024-07-29 09:08] LABS: Vitamin B12 577 pg/mL (232-1245)
--- NOTE | 2024-07-29 14:28 | CM.DCFOLLOWU ---
1st attempt 07/29/24, no answer
--- NOTE | 2024-07-30 14:48 | CM.DCFOLLOWU ---
2nd attempt 07/30/24, no answer
--- NOTE | 2024-08-02 09:23 | CM.NOTE ---
Urine Culture results faxed to [facility] after speaking to staff at [facility].
--- NOTE | 2024-08-02 12:05 | CM.DCFOLLOWU ---
3rd attempt 08/02/24, no answer
== END 2024-07-28 15:50 | disposition home or self-care (01) ==
LOC: ER 20:31 → MS 21:25
PROVIDERS: Internal Medicine; Registered Nurse; Admitting Provider Family Medicine; Emergency Provider Emergency Medicine; Visit Provider Family Medicine
DX: R55 Syncope and collapse (principal); E87.6 Hypokalemia; B37.41 Candidal cystitis and urethritis; D51.9 Vitamin B12 deficiency anemia, unspecified; R40.0 Somnolence; G43.709 Chronic migraine without aura, not intractable, without status migrainosus; F41.8 Other specified anxiety disorders; M25.512 Pain in left shoulder; K21.9 Gastro-esophageal reflux disease without esophagitis; R10.9 Unspecified abdominal pain; Z79.899 Other long term (current) drug therapy; M50.322 Other cervical disc degeneration at C5-C6 level; Z98.84 Bariatric surgery status; Z88.1 Allergy status to other antibiotic agents; Z88.5 Allergy status to narcotic agent
CPT/HCPCS: 36415; 70450; 71045; 80048; 80053; 80061; 80307; 80320; 81001; 82607; 82948; 83036; 83735; 84443; 84484; 85025; 85378; 86140; 87086; 87106; 93005; 93242; 93306; 93880; 94761; 96361; 96365; 96366; 96367; 96368; 96372; 96375; 96376; 99285; G0378; J0360; J0696; J1650; J1885; J2060; J2405; J3360; J3475; J3480

== ENCOUNTER 2024-07-31 08:30 | Outpatient (OUT) | payer MEDICARE, MEDICAID, SELFPAY ==
[2024-07-31 09:30] LABS: Alanine Aminotransferase 18 U/L (14-59); Albumin Globulin Ratio 0.9; Albumin Level 3.1 g/dL (3.4-5.0); Alkaline Phosphatase 98 U/L (46-116); Anion Gap 8.8; Aspartate Amino Transferase 19 U/L (15-37); Bilirubin Total 0.4 mg/dL (0.2-1.0); Calcium 8.7 mg/dL (8.5-10.1); Carbon Dioxide 27.9 mmol/L (21.0-32.0); Chloride 107 mmol/L (98-107); Estimated GFR (African America >60 (>=60 mL/min/1.73m^2); Estimated GFR (Non-African Ame >60 (>=60 mL/min/1.73m^2); Globulin 3.6 g/dL; Glucose 72 mg/dL (74-106); Potassium 4.7 mmol/L (3.5-5.1); Sodium 139 mmol/L (136-145); Total Protein 6.7 g/dL (6.4-8.2)
== END 2024-07-31 08:31 | disposition home or self-care (01) ==
LOC: LAB 08:33
PROVIDERS: Visit Provider Nurse Practitioner Family
DX: F41.9 Anxiety disorder, unspecified (principal)
CPT/HCPCS: 36415; 80053